=== PATIENT | male | born 1945 | race Caucasian/White ===

== ENCOUNTER 2016-04-21 09:10 | Inpatient (IN) | payer MEDICARE, OTHER ==
[~2016-04-21] VITALS: Ht 175.3 cm; Wt 89.0 kg
[2016-05-05] VITALS (11 sets, daily range): BP systolic 123–149; BP diastolic 62–89; PULSE 64–90; TEMP 97.4–98.5
[2016-05-05] MEDS ORDERED: PRAVACHOL 20MG20 MG PO (09:33)
[2016-05-05] MEDS ORDERED: PRINZIDE 12.5 M1 TA1 PO (09:34)
[2016-05-05] MEDS ORDERED: PRIL40 PO (09:35)
[2016-05-05] MEDS ORDERED: SINGULAIR 110 MG/TAB PO (09:36)
[2016-05-05] MEDS ORDERED: MOBIC15 MG PO (09:36)
[2016-05-05] MEDS ORDERED: MIRAPEX1.5 MG PO (09:37)
[2016-05-05] MEDS ORDERED: AZILECT1 MG PO (09:37)
[2016-05-05] MEDS ORDERED: ALLEGRA 180MG180 MG PO (09:39)
[2016-05-05] MEDS ORDERED: 00186-0370-20 IH (09:39)
[2016-05-05] MEDS ORDERED: ATROVENT INHALE14 GM IH (09:40)
[2016-05-05] MEDS ORDERED: IPRATROPIUM BROM3 M1 IH (09:41)
[2016-05-05] MEDS ORDERED: ASPIRIN E.C. 8181 MG PO (09:42)
[2016-05-05 15:39] LABS: MEAN CELL VOLUME 85 fl (80.0-100.0); MEAN CORPUSCULAR HGB CONC 31 g/dl (33.0-37.0); MEAN PLATELET VOLUME 11.6 fl (7.4-10.4); PLATELET COUNT 134 K/mm3 (130-400); RED BLOOD COUNT 4.05 M/mm3 (4.20-5.60); REDCELL DISTRIBUTION WIDTH-CV 23.4 % (11.5-14.5)
[2016-05-05 15:49] LABS: ADD PATHOLOGY DIFF REVIEW NO; HEMATOCRIT 34.6 % (42.0-52.0); HEMOGLOBIN 10.6 g/dl (13.5-18.0); MEAN CORPUSCULAR HEMOGLOBIN 26 pg (27.0-31.0); WHITE BLOOD COUNT 20.6 K/mm3 (4.8-10.8)
[2016-05-05 16:06] LABS: CALCIUM 8.7 mg/dL (8.4-10.2); CREATININE, serum 1.4 mg/dL (0.66-1.25); POTASSIUM 4.7 mmol/L (3.4-5.0)
[2016-05-05 16:09] LABS: BAND 34 % (0-10); NEUTROPHILS 61 % (42.0-75.2); PLATELET ESTIMATE NORMAL (NORMAL); TOTAL CELLS COUNTED 100
[2016-05-05 16:12] LABS: ANISOCYTOSIS 3+
[2016-05-05] MEDS ORDERED: MULTI VITAMINS1 TAB PO (16:34)
[2016-05-06 01:40] VITALS: BP 118/66; PULSE 85; TEMP 98.2
[2016-05-06 06:00] VITALS: BP 120/64; PULSE 90; TEMP 98.1
[2016-05-06 07:28] LABS: CALCIUM 8.5 mg/dL (8.4-10.2); CREATININE, serum 1.76 mg/dL (0.66-1.25)
[2016-05-06 09:11] VITALS: BP 119/63; PULSE 78; TEMP 98.2
[2016-05-06 10:01] LABS: BASO % 0.2 % (0.0-2.0); EOS % 0.1 % (0-4.0); GRAN # 12.6 (1.4-6.5); GRAN % 87.4 % (42.2-75.2); LYMPH # 0.9 (1.2-3.4); LYMPH % 6.1 % (20.0-51.0); MEAN CELL VOLUME 84 fl (80.0-100.0); MEAN CORPUSCULAR HGB CONC 32 g/dl (33.0-37.0); MEAN PLATELET VOLUME 10.1 fl (7.4-10.4); MONO # 0.8 (0.1-0.6); MONO % 5.5 % (1.7-9.3); PLATELET COUNT 79 K/mm3 (130-400); RED BLOOD COUNT 3.58 M/mm3 (4.20-5.60); REDCELL DISTRIBUTION WIDTH-CV 23.6 % (11.5-14.5); WHITE BLOOD COUNT 14.4 K/mm3 (4.8-10.8)
[2016-05-06 10:02] LABS: HEMATOCRIT 30.2 % (42.0-52.0); HEMOGLOBIN 9.5 g/dl (13.5-18.0); MEAN CORPUSCULAR HEMOGLOBIN 27 pg (27.0-31.0)
[2016-05-06 13:37] VITALS: BP 128/60; PULSE 75; TEMP 97.8
[2016-05-06 16:48] VITALS: BP 131/66; PULSE 67; TEMP 97.7
[2016-05-06 21:05] VITALS: BP 128/63; PULSE 67; TEMP 97.6
[2016-05-07 05:25] VITALS: BP 134/72; PULSE 73; TEMP 98.3
[2016-05-07 09:38] VITALS: BP 133/69; PULSE 86; TEMP 97.7
[2016-05-07 13:13] VITALS: BP 135/79; PULSE 93; TEMP 97.7
== END 2016-05-07 14:53 | disposition home or self-care (01) | DRG 658 ==
LOC: INPTSU 05-05 08:07 → SURG 05-05 10:30
PROVIDERS: Urology
PROC: 0TT10ZZ Resection of Left Kidney, Open Approach (ICD-10-PCS; principal; 2016-05-05 10:30)
DX: C64.2 Malignant neoplasm of left kidney, except renal pelvis (principal); I10 Essential (primary) hypertension; G20 Parkinson's disease
CPT/HCPCS: A4315; A9284; J0690; J1100; J1650; J2250; J2370; J2405; J2704; J2710; J3010; J7030; J7120

== ENCOUNTER 2019-04-28 19:19 | Inpatient (IN) | payer MEDICARE, OTHER ==
[~2019-04-28] VITALS: Ht 167.6 cm; Wt 87.5 kg
[~2019-04-28 19:19] MED LIST: 00186-0370-20 IH; ALLEGRA 180MG180 MG PO; ASPIRIN E.C. 8181 MG PO; ATROVENT INHALE14 GM IH; AZILECT1 MG PO; IPRATROPIUM BROM3 M1 IH; MIRAPEX1.5 MG PO; MOBIC15 MG PO; MULTI VITAMINS1 TAB PO; PRAVACHOL 20MG20 MG PO; PRIL40 PO; PRINZIDE 12.5 M1 TA1 PO; SINGULAIR 110 MG/TAB PO
[2019-04-28 21:34] VITALS: BP 139/91; PULSE 124; TEMP 98.5
[2019-04-28] MEDS ORDERED: CALTRATE 600 +1 TAB PO (22:19)
[2019-04-28] MEDS ORDERED: FLOMAX 0.40.4 MG/CAP PO (22:21)
[2019-04-28] MEDS ORDERED: LASIX 20MG TABL20 MG PO (22:24)
[2019-04-28] MEDS ORDERED: PROFERRIN ES12 MG PO (22:25)
[2019-04-28] MEDS ORDERED: ZESTRIL 5MG5 MG PO (22:27)
[2019-04-28] MEDS ORDERED: TOPROL XL 25MG25 MG PO (22:28)
[2019-04-28] MEDS ORDERED: PROLIA60 MG/ML SQ (22:31)
[2019-04-28] MEDS ORDERED: VENTOLIN0.09 MG IH (22:33)
[2019-04-28 23:33] VITALS: BP 115/67; PULSE 116; TEMP 98.1
--- NOTE | 2019-04-29 01:05 | NUR ---
Patient to room 323 at 2130 via stretcher from EMS. alert and oriented. NG tube connected to LIS with black coffe ground drainage. IVF started to R hand IV, infusing without issue. denies pain at this time. denies nausea at this time. 950 out of NG tube, new container hooked up. patient still tachycardic but regular. afebrile. patient now resting in bed. no further needs at this time. will continue to monitor.
[2019-04-29 03:44] VITALS: BP 115/70; PULSE 106; TEMP 98.3
[2019-04-29 06:06] LABS: ALBUMIN 3.5 gm/dL (3.5-5.0); BILIRUBIN,TOTAL 0.6 mg/dL (0.0-1.0); CALCIUM 8.7 mg/dL (8.4-10.2); CREATININE, serum 1.9 (0.66-1.25); PHOSPHOROUS 4.4 mg/dL (2.5-4.5); POTASSIUM 4.7 mmol/L (3.4-5.0); TOTAL PROTEIN 6.6 gm/dL (6.4-8.2)
[2019-04-29 06:08] LABS: PROTHROMBIN TIME 11.7 SECONDS (9.7-12.8)
[2019-04-29 07:10] LABS: BASO % 0.3 % (0.0-2.0); EOS # 0.2 (0.0-0.7); EOS % 1.7 % (0-4.0); GRAN % 78.9 % (42.2-75.2); HEMATOCRIT 38.6 % (42.0-52.0); HEMOGLOBIN 12.2 g/dl (13.5-18.0); LYMPH # 1.1 (1.2-3.4); LYMPH % 10.5 % (20.0-51.0); MEAN CELL VOLUME 96 fl (80.0-100.0); MEAN CORPUSCULAR HEMOGLOBIN 30 pg (27.0-31.0); MEAN CORPUSCULAR HGB CONC 32 g/dl (33.0-37.0); MEAN PLATELET VOLUME 10.5 fl (7.4-10.4); MONO # 0.9 (0.1-0.6); MONO % 8.4 % (1.7-9.3); PLATELET COUNT 209 K/mm3 (130-400); RED BLOOD COUNT 4.02 M/mm3 (4.20-5.60); REDCELL DISTRIBUTION WIDTH-CV 12.2 % (11.5-14.5)
--- NOTE | 2019-04-29 08:00 | NUR ---
Denies pain or nausea. NG to LIS with small amounts dark brown fluid. IV fluids infusing.
[2019-04-29 08:44] VITALS: BP 121/67; PULSE 101; TEMP 99
--- NOTE | 2019-04-29 10:00 | NUR ---
Ambulatory in room. Coughed and NG fell out.
--- NOTE | 2019-04-29 11:30 | NUR ---
Dr. Smith saw patient. Ice chips given. Walked length of [place] with standby assist. Activity tolerated well.
[2019-04-29 11:51] VITALS: BP 115/62; PULSE 109; TEMP 98.3
--- NOTE | 2019-04-29 12:07 | NUR ---
Plan: To return home with Rola . Assess: Patient reports that he resides in [place], [place], Patient shares that his son will help transport home because does not like to drive to [place]. Patient shares that his PCP is Dr. Pablo with [facility] on June 10, 2019. Patient shares that he obtains RX from [facility]. Denies having any DME, POA is . Action: Educated on services, declined home health. Nothing further.
--- NOTE | 2019-04-29 13:04 | NUR ---
Director Of Communications stopped by and offered prayer and support with patient while family was in room.
--- NOTE | 2019-04-29 13:30 | NUR ---
Ambulatory to bathroom and had bowel movement. No c/o nausea or pain. Taking ice chips.
[2019-04-29 17:08] VITALS: BP 129/78; PULSE 89; TEMP 98.5
--- NOTE | 2019-04-29 18:00 | NUR ---
Ambulated several times in the halls today with staff. No complaints. Tolerated clear liquids well.
[2019-04-29 19:38] VITALS: BP 125/68; PULSE 88; TEMP 99
--- NOTE | 2019-04-29 21:39 | NUR ---
Patient doing well tonight. alert and oriented. denies pain and nausea. NG no longer in place and patient is happy about that. states he has been passing gas. R lung sounds Rhonchorous. states he had BM today. tolerated clears for dinner without issue. took scheduled protonix without issue. IVF infusing. patient currently resting in bed watching tv. no further needs at this time. call light within reach. will continue to monitor.
[2019-04-29 23:39] VITALS: BP 116/61; PULSE 84; TEMP 98.3
[2019-04-30 03:47] VITALS: BP 139/73; PULSE 90; TEMP 97.6
[2019-04-30 08:05] VITALS: BP 126/61; PULSE 94; TEMP 98.6
--- NOTE | 2019-04-30 10:17 | NUR ---
Patient sitting up in chair. Visitors at bedside. He denies nausea, tolerating clear liquids. He reports passing flatus & having a small Bm this am. Ivf per orders. Will monitor.
[2019-04-30 11:53] VITALS: BP 128/78; PULSE 82; TEMP 97.8
[2019-04-30 12:37] LABS: BASO # 0.1 (0.0-0.2); BASO % 0.8 % (0.0-2.0); EOS # 0.4 (0.0-0.7); EOS % 5.4 % (0-4.0); GRAN # 4.4 (1.4-6.5); HEMOGLOBIN 11.2 g/dl (13.5-18.0); LYMPH # 1.2 (1.2-3.4); LYMPH % 19.1 % (20.0-51.0); MEAN CELL VOLUME 97 fl (80.0-100.0); MEAN CORPUSCULAR HEMOGLOBIN 31 pg (27.0-31.0); MEAN CORPUSCULAR HGB CONC 32 g/dl (33.0-37.0); MEAN PLATELET VOLUME 9.6 fl (7.4-10.4); MONO # 0.5 (0.1-0.6); MONO % 7.2 % (1.7-9.3); PLATELET COUNT 198 K/mm3 (130-400); RED BLOOD COUNT 3.66 M/mm3 (4.20-5.60); REDCELL DISTRIBUTION WIDTH-CV 12.1 % (11.5-14.5)
[2019-04-30 12:52] LABS: HEMATOCRIT 35.5 % (42.0-52.0)
[2019-04-30 12:53] LABS: ALBUMIN 3.6 gm/dL (3.5-5.0); BILIRUBIN,TOTAL 0.5 mg/dL (0.0-1.0); CALCIUM 8.3 mg/dL (8.4-10.2); CREATININE, serum 1.66 (0.66-1.25); POTASSIUM 4.2 mmol/L (3.4-5.0); TOTAL PROTEIN 6.9 gm/dL (6.4-8.2)
[2019-04-30 16:21] VITALS: BP 129/69; PULSE 78; TEMP 98.2
--- NOTE | 2019-04-30 17:47 | NUR ---
Patient sitting up in chair. He has done well today. Tolerated a full liquid dinner. 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 We reviewed & restarted home medications this afternoon. He was happy to get back on his parkinsons medication & RT also reviewed medications. Ivf. Voiding adequately, he does report chronic prostate problems. Will monitor.
[2019-04-30 19:21] VITALS: BP 125/67; PULSE 81; TEMP 98.2
--- NOTE | 2019-04-30 23:40 | NUR ---
Patient alert and up in chair. No complaints of nausea or vomiting at this time. Patient vital signs stable. Patient reports he had one bowel movement today. Active bowel sounds heard in all quadrants during assessment. Patient has been tolerating oral intake. No complaints of pain.
[2019-05-01 00:17] VITALS: BP 101/58; PULSE 68; TEMP 98.3
[2019-05-01 04:30] VITALS: BP 119/60; PULSE 66; TEMP 98
[2019-05-01 06:40] LABS: BASO % 0.7 % (0.0-2.0); EOS # 0.4 (0.0-0.7); EOS % 6.2 % (0-4.0); GRAN # 3.9 (1.4-6.5); GRAN % 64.9 % (42.2-75.2); HEMOGLOBIN 10.6 g/dl (13.5-18.0); LYMPH # 1.1 (1.2-3.4); LYMPH % 18.8 % (20.0-51.0); MEAN CELL VOLUME 96 fl (80.0-100.0); MEAN CORPUSCULAR HEMOGLOBIN 30 pg (27.0-31.0); MEAN CORPUSCULAR HGB CONC 32 g/dl (33.0-37.0); MEAN PLATELET VOLUME 9.6 fl (7.4-10.4); MONO # 0.5 (0.1-0.6); MONO % 9.1 % (1.7-9.3); PLATELET COUNT 192 K/mm3 (130-400); REDCELL DISTRIBUTION WIDTH-CV 11.9 % (11.5-14.5)
[2019-05-01 06:52] LABS: HEMATOCRIT 33.7 % (42.0-52.0)
[2019-05-01 06:57] LABS: ALBUMIN 3.3 gm/dL (3.5-5.0); BILIRUBIN,TOTAL 0.4 mg/dL (0.0-1.0); CALCIUM 8.1 mg/dL (8.4-10.2); CREATININE, serum 1.58 (0.66-1.25); POTASSIUM 4.1 mmol/L (3.4-5.0); TOTAL PROTEIN 6.4 gm/dL (6.4-8.2)
[2019-05-01 07:42] VITALS: BP 122/53; PULSE 77; TEMP 97.4
--- NOTE | 2019-05-01 08:00 | NUR ---
PATIENT IS A&O AND SITTING UP IN BEDSIDE CHAIR THIS AM. VSS. DENIES PAIN. ABD IS DISTENDED, SLIGHTLY FIRM AND WITH POSITIVE BOWL SOUNDS. PATIENT REPORTS HE IS PASSING GAS AND HAD A BM THIS AM. NO C/O N/V. IV FLUIDS INFUSING VIA PUMP INTO RIGHT WRIST IV. PATIENT TOLERATING FULL LIQUID DIET WELL. AM MEDS GIVEN. HEAD TO TOE ASSESSMENT WNL.
[2019-05-01 11:30] VITALS: BP 118/63; PULSE 69; TEMP 97.8
--- NOTE | 2019-05-01 12:43 | NUR ---
First visit from the professor of practice. No needs right now.
--- NOTE | 2019-05-01 14:51 | NUR ---
The patient is to discharge back home with his today, 04/30. SW presented and explained the IM form to the patient. The patient verbalized understanding, signed, and he was provided a copy. No additional needs at this time.
--- NOTE | 2019-05-01 15:30 | NUR ---
PATIENT DISCHARGING HOME VIA WC TO PERSONAL VEHICLE WITH FAMILY. GAVE DISCHARGE INSTRUCTIONS. ANSWERED ALL QUESTIONS/CONCERNS. DC'D IV SITE. PATIENT DRESSED AND DISCHARGED.
== END 2019-05-01 15:30 | disposition home or self-care (01) | DRG 390 ==
LOC: MEDICAL 19:19 → SURG 21:22
PROVIDERS: ADMIT Surgery
DX: K56.600 Partial intestinal obstruction, unspecified as to cause (principal); J45.909 Unspecified asthma, uncomplicated; G20 Parkinson's disease; I10 Essential (primary) hypertension; E78.00 Pure hypercholesterolemia, unspecified; M19.90 Unspecified osteoarthritis, unspecified site; D64.9 Anemia, unspecified
CPT/HCPCS: A9284; C9113; J7120

== ENCOUNTER 2023-11-09 11:40 | Day surgery (SDC) | payer MEDICARE ==
[~2023-11-09] VITALS: Ht 167.6 cm; Wt 94.0 kg
[~2023-11-09 11:40] MED LIST changes: +CALTRATE 600 +1 TAB PO; +FLOMAX 0.40.4 MG/CAP PO; +LASIX 20MG TABL20 MG PO; +LR 1,000 ML IV SCH; +PROFERRIN ES12 MG PO; +PROLIA60 MG/ML SQ; +TOPROL XL 25MG25 MG PO; +VENTOLIN0.09 MG IH; +ZESTRIL 5MG5 MG PO
[2023-11-09] MEDS ORDERED: LASIX 40MG TABL40 MG PO (13:49)
[2023-11-09] MEDS ORDERED: MIRAPEX1.5 MG PO (13:55)
[2023-11-09] MEDS ORDERED: ZYLOPRIM 100MG100 MG PO (13:59)
[2023-11-09] MEDS ORDERED: ELDEPRYL 5MG5 MG/CAP PO (14:00)
[2023-11-09] MEDS ORDERED: NATURAL E400 IU PO (14:01)
[2023-11-09] MEDS ORDERED: STOOL SOFTENER100 M2 PO (14:02)
[2023-11-09] MEDS ORDERED: GEMTESA75 MG PO (14:02)
[2023-11-09 14:22] VITALS: BP 137/77; PULSE 84; TEMP 98.1
[2023-11-09] MEDS ORDERED: fentaNYL 50 MCG/ML 2 ML VIAL ONE (14:58)
[2023-11-09] MEDS ORDERED: Glycopyrrolate 0.2 MG/ML 1 ML VIAL ONE (14:59)
[2023-11-09] MEDS ORDERED: dexAMETHasone 10 MG/ML VIAL ONE (14:59)
[2023-11-09] MEDS ORDERED: Lidocaine PF 2% (20 MG/ML) 5 ML VIAL ONE (14:59)
[2023-11-09] MEDS ORDERED: Ondansetron 4 MG/2 ML VIAL ONE (14:59)
[2023-11-09] MEDS ORDERED: NS 10 ML IV ONE (15:00)
[2023-11-09] MEDS ORDERED: Ondansetron 4 MG/2 ML VIAL IV PRN (16:00)
[2023-11-09] MEDS ORDERED: Acetaminophen 325 MG TAB PO PRN (16:00)
[2023-11-09] MEDS ORDERED: Naloxone 0.4 MG/ML VIAL IV PRN (16:00)
[2023-11-09] MEDS ORDERED: Hyoscyamine 0.125 MG Sublingual TAB SL PRN (16:00)
[2023-11-09 16:35] VITALS: BP 135/78; PULSE 67
[2023-11-09] MEDS ORDERED: Acetaminophen 500 MG TAB PO SCH (16:46)
[2023-11-09 16:50] VITALS: BP 123/72; PULSE 74
[2023-11-09 16:53] VITALS: TEMP 97.9
--- NOTE | 2023-11-09 17:25 | NUR ---
1635- RECIEVED REPORT FROM TORY CADE. MONITORS PLACE ON PT AND VS OBTAINED. MUFFIN AND JUICE GIVEN TO PT. NO COMPLAINTS OF NAUSEA OR PAIN. MILD DISCOMFORT FROM CATHETER. 2L NC. 1650- TITRATED PT TO ROOM AIR, SATING WELL. 1705- NASIR REMOVED PER ORDER. 1720- DISCHARGE INSTRUCTIONS GIVEN TO PT. EDUCATED PT ON HOW TO EMPTY ALVAR[place]O CATHETER. NO ADDITIONAL QUESTIONS. 1730- DISCHARGED FROM HOSPITAL VIA WHEELCHAIR TO PRIVATE VEHCILE DRIVEN BY SON.
== END 2023-11-09 17:29 ==
LOC: SDCO 11:40
DX: N32.0 Bladder-neck obstruction (principal); N39.41 Urge incontinence; R35.0 Frequency of micturition; Z85.528 Personal history of other malignant neoplasm of kidney; Z90.5 Acquired absence of kidney; Z85.46 Personal history of malignant neoplasm of prostate; Z79.82 Long term (current) use of aspirin
CPT/HCPCS: J0690; J1100; J2405; J2704; J3010; J7120